=== PATIENT | female | born 1950 | race African-American/Black ===

== ENCOUNTER 2024-05-20 03:21 | Emergency (ER) | payer OTHER ==
[~2024-05-20] VITALS: Ht 170.2 cm; Wt 77.1 kg
[~2024-05-20 03:21] MED LIST: AMLO10TA80 PO; ATEN50TA PO; DABI150C PO; LANTUSUD SUBCUT; LIP40 PO; POTA20LI52 PO
[2024-05-20 03:23] VITALS: O2SAT 99
[2024-05-20] MEDS ORDERED: MECLIZINE 25MG TABLET PO ONE (04:00)
[2024-05-20] MEDS: MECLIZINE 12.5MG TABLET PO NR (04:15)
[2024-05-20 04:28] LABS: BASOPHILS % 1.1 % (0.0-2.0); DIFFERENTIAL COMMENT 0; EOSINOPHILS % 13.4 % (0.0-5.0); HEMOGLOBIN. 12.8 g/dL (12.0-16.0); LYMPHOCYTES % 34.8 % (20.0-50.0); MEAN CORPUSCULAR HEMOGLOBIN 27.4 pg (28.0-32.0); MEAN CORPUSCULAR HGB CONC 32.9 g/dL (31.0-37.0); MEAN CORPUSCULAR VOLUME 83.2 fL (81.0-99.0); MONOCYTES % 4.5 % (2.0-8.0); NEUTROPHILS % 46.2 % (40.0-76.0); PLATELET 322 x1000/uL (130-400); RED BLOOD CELL COUNT 4.69 mill/uL (4.2-5.4); RED CELL DISTRIBUTION WIDTH 14.4 % (11.6-14.6); WHITE BLOOD COUNT 5.6 x1000/uL (4.5-11.0)
[2024-05-20 04:35] LABS: CHLORIDE 103 mEq/L (98-107); POTASSIUM 3.5 mEq/L (3.5-5.1); SODIUM 140 mEq/L (136-145)
[2024-05-20 04:37] LABS: CALCIUM 9.1 mg/dL (8.7-10.4); CARBON DIOXIDE 31 mEq/L (21-32)
[2024-05-20 04:42] LABS: CREATININE 0.8 mg/dL (0.6-1.0); GLUCOSE 171 mg/dL (70-105); UREA NITROGEN BLOOD 15 mg/dL (9-23)
[2024-05-20 04:43] LABS: TROPONIN I HIGH SENSITIVITY 33 ng/L (3.0-34)
[2024-05-20] MEDS: SODIUM CHLORIDE 0.9% 1,000 ML IV ONE (05:11)
[2024-05-20] MEDS: ONDANSETRON HCL 4MG/2ML INJ IV STA (05:11)
[2024-05-20 06:34] LABS: TROPONIN I HIGH SENSITIVITY 30 ng/L (3.0-34)
[2024-05-20 06:59] LABS: CLARITY URINE CLEAR (CLEAR); COLOR URINE YELLOW (YELLOW); GLUCOSE URINE TRACE (NEGATIVE); KETONES URINE NEGATIVE (NEGATIVE); LEUKOCYTE ESTERASE URINE NEGATIVE (NEGATIVE); NITRITE URINE NEGATIVE (NEGATIVE); OCCULT BLOOD URINE NEGATIVE (NEGATIVE); PH URINE 7.5 (4.5-8.0); PROTEIN URINE NEGATIVE (NEGATIVE); SPECIFIC GRAVITY URINE 1.006 (1.005-1.030); UROBILINOGEN URINE 0.2 E.U./dL (0.2-1.0)
[2024-05-20 07:46] LABS: WBC URINE 0-2 /hpf (0-2)
[2024-05-20 07:47] LABS: BACTERIA URINE NONE SEEN; RBC URINE 0-2 /hpf (0-2); SQUAMOUS EPITHELIAL CELL URINE NONE SEEN /lpf (RARE/1+)
[2024-05-20 09:16] LABS: INR 1.5; PROTHROMBIN TIME 15.1 sec (9.6-11.0)
[2024-05-20 10:06] VITALS: BP 140/68; PULSE 66; RESP 14; TEMP 36.7; O2SAT 98
== END 2024-05-20 10:52 | disposition short-term general hospital (02) ==
LOC: ER 03:43
DX: R55 Syncope and collapse (principal); I10 Essential (primary) hypertension; E11.9 Type 2 diabetes mellitus without complications; I48.91 Unspecified atrial fibrillation; J44.9 Chronic obstructive pulmonary disease, unspecified; Z79.02 Long term (current) use of antithrombotics/antiplatelets; Z79.899 Other long term (current) drug therapy
CPT/HCPCS: 99285; 96374; 70450; 71045; 96361; 80048; 81003; 85025; 85610; 84484; 36415; 93005; J8597; J2405; J7030